=== PATIENT | female | born 2000 | race Caucasian/White ===

== ENCOUNTER 2023-12-02 02:12 | Emergency (ER) | payer SELFPAY ==
[2023-12-02 02:13] VITALS: BP 104/89; PULSE 73; RESP 16; TEMP 36.3; O2SAT 99
[2023-12-02 02:57] LABS: BEDSIDEPREGUCG Negative (Negative)
[2023-12-02 03:13] LABS: Add Urine Microscopic? NO; Appearance Urine Clear (Clear); Bilirubin Urine Negative (Negative); Blood Urine Negative (Negative); Color Urine Yellow (Yellow); Glucose Urine UA Negative (Negative); Ketones Urine Negative (Negative); Leukocyte Esterase Ur Negative LEU/UL (Negative); Nitrate Urine Negative (Negative); Protein Urine Negative (Negative); Specific Grav Ur 1.018 (1.001-1.035); Urobilinogen Urine 0.2 mg/dL (<2.0)
--- NOTE | 2023-12-02 03:41 | ED.FEMALEGU ---
HPI - Female Genitourinary General Chief complaint: Urogenital-Female Stated complaint: uti Time Seen by Provider: 12/02/23 03:05 History of Present Illness HPI Narrative: Patient is a 23-year-old female who presents to the emergency department this morning complaining of urinary urgency and describing the sensation of 5 urethral pressure dysuria or hematuria. Patient states that her symptoms started approximately 2 weeks ago and she prescribed herself some Bactrim online and finished the full 5 day course. Patient states that symptoms did improve slightly but the moment she finished the antibiotics her symptoms returned. Patient then went to an urgent care and had a urinalysis performed and she was placed on Keflex. Patient was contacted few days after an informed that her culture did not grow any bacteria. Patient states that while she was on the cephalexin her symptoms improved. Patient states that she gets urinary tract infections multiple times a year and she states that she feels as she has had at least for this year. Denies any additional symptoms or concerns. Patient has not followed up with an OBGYN regarding her symptoms. Related Data Home Medications Medication Instructions Recorded Confirmed No Home Medications 12/02/23 12/02/23 Allergies Allergy/AdvReac Type Severity Reaction Status Date / Time No Known Allergies Allergy Verified 12/02/23 03:49 Review of Systems Review of Systems: All systems are reviewed and are negative unless stated otherwise in the HPI. Exam Narrative: General: Alert, awake, afebrile, in no acute distress. HEENT: PERRL, no rhinorrhea, no post nasal drip, oropharynx clear. Cardiovascular: Regular rate and rhythm, no murmurs, rubs or gallops, no peripheral edema. Respiratory: Clear to auscultation bilaterally, no tachypnea, no wheezing, no rhonchi, no rubs, no respiratory distress. Abdomen: Soft, nontender, nondistended, no rebound, no guarding, no peritoneal signs. 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 Musculoskeletal: No joint swelling or deformity, normal muscle tone. Skin: No rashes or petechia, no signs of infection. Neurological: Alert and oriented to person, place, and time. Follows all commands. No focal deficits, speech is clear and fluent. Course Vital Signs Vital signs: Vital Signs Temperature 97.4 F L 12/02/23 02:13 Pulse Rate 73 10/20/24 02:13 Respiratory Rate 16 12/02/23 02:13 Blood Pressure 104/89 12/02/23 02:13 Pulse Oximetry 99 12/02/23 02:13 Oxygen Delivery Room Air 12/02/23 02:13 Temperature 97.4 F L 12/02/23 02:13 Pulse Rate 65 12/02/23 04:09 Respiratory Rate 17 12/02/23 04:09 Blood Pressure 113/65 12/02/23 04:09 Pulse Oximetry 100 12/02/23 04:09 Oxygen Delivery Room Air 12/02/23 02:13 MDM - Female Genitourinary MDM Narrative Medical decision making narrative: The patient was evaluated by myself in the emergency department. History is obtained from patient who is an independent historian and physical exam was performed. External medical records were reviewed at this time. Urinalysis was obtained at this time and revealed no acute process, no evidence of urinary tract infection. At this time, patient was has regarding any concern for STDs and patient states that she recently had a full STD workup as she was thinking that her symptoms could be related to that and all STD testing came back negative. She denies any vaginal discharge or any symptoms of yeast infection. Patient was informed that she she will be provided with an OBGYN to follow up with regard symptoms and patient is agreeable. Differential diagnosis considerations include urinary tract infection, STDs. Comorbidities impacting this visit include none. I have evaluated and discussed social determinants of health with the patient that could potentia
[2023-12-02 04:09] VITALS: BP 113/65; PULSE 65; RESP 17; O2SAT 100
== END 2023-12-02 04:32 | disposition home or self-care (01) ==
PROVIDERS: Physician Assistant; Emergency Provider Emergency Medicine
DX: R39.15 Urgency of urination (principal); Z87.440 Personal history of urinary (tract) infections
CPT/HCPCS: 81003; 81025; 99283